=== PATIENT | male | born 1995 | race Caucasian/White ===

== ENCOUNTER 2025-03-03 16:43 | Emergency (ER) | payer BC | END 2025-03-03 18:21 | disposition home or self-care (01) | LOC: CSHERS 16:43 | DX: M25.562 Pain in left knee (principal); F17.210 Nicotine dependence, cigarettes, uncomplicated; X50.9XXA Other and unspecified overexertion or strenuous movements or postures, initial encounter; Y93.75 Activity, martial arts | CPT/HCPCS: 99283 ==